=== PATIENT | female | born 1985 | race Caucasian/White ===

== ENCOUNTER 2018-11-14 05:14 | Inpatient (IN) | payer BC ==
[2018-11-14] MEDS ORDERED: Sodium Chloride 0.9% 10 ML Syringe FLUSH PRN (05:19)
[2018-11-14] MEDS ORDERED: Sodium Chloride 0.9% 10 ML SDV IV PRN (05:19)
[2018-11-14] MEDS ORDERED: Citric Acid/Sodium Citrate Solution 30 ML Cup PO ONE (05:19)
[2018-11-14] MEDS ORDERED: Sodium Chloride 0.9% 2.5 ML Syringe FLUSH PRN (05:19)
[2018-11-14] MEDS ORDERED: Oxytocin/0.9 % Sodium Chloride 30 UNIT/500 ML BAG IV SCH (05:30)
[2018-11-14] MEDS: Lactated Ringers 1,000 ML IV SCH ×3 (05:46→07:20)
--- NOTE | 2018-11-14 06:51 | PCM.PREANE ---
Preanesthetic Assessment - Anesthesia/Transfusion/Family Hx Anesthesia History: Prior Anesthesia Without Reaction Family History of Anesthesia Reaction: No Transfusion History: No Prior Transfusion(s) Intubation History: Unknown - Review of Systems General: No Symptoms Pulmonary: No Symptoms Cardiovascular: No Symptoms Gastrointestinal: No Symptoms Neurological: No Symptoms Other: Reports: None - Physical Assessment Height: 5 ft 9 in Weight: 115.212 kg ASA Class: 2 Mental Status: Alert & Oriented x3 Airway Class: Mallampati = 2 Dentition: Reports: Normal Dentition Thyro-Mental Finger Breadths: 3 Mouth Opening Finger Breadths: 3 ROM/Head Extension: Full Lungs: Clear to Auscultation, Normal Respiratory Effort Cardiovascular: Regular Rate, Regular Rhythm - Lab Values: Laboratory Last Values WBC 8.27 K/uL (4.0-11.0) 11/13/18 15:47 RBC 3.47 M/uL (4.30-5.90) L 11/13/18 15:47 Hgb 10.7 g/dL (12.0-16.0) L 11/13/18 15:47 Hct 32.1 % (36.0-46.0) L 11/13/18 15:47 MCV 92.5 fL (80.0-98.0) 11/13/18 15:47 MCH 30.8 pg (27.0-32.0) 11/13/18 15:47 MCHC 33.3 g/dL (31.0-37.0) 11/13/18 15:47 RDW Std Deviation 44.8 fl (28.0-62.0) 11/13/18 15:47 RDW Coeff of Ta 13 % (11.0-15.0) 11/13/18 15:47 Plt Count 308 K/uL (150-400) 11/13/18 15:47 MPV 10.30 fL (7.40-12.00) 11/13/18 15:47 Nucleated RBC % 0.0 /100WBC 11/13/18 15:47 Nucleated RBCs # 0 K/uL 11/13/18 15:47 Blood Type O NEGATIVE 11/13/18 15:47 Antibody Screen NEGATIVE 11/13/18 15:47 - Allergies Allergies/Adverse Reactions: Allergies Allergy/AdvReac Type Severity Reaction Status Date / Time No Known Allergies Allergy Verified 11/09/18 14:07 - Blood Blood Available: No - Anesthesia Plan Pre-Op Medication Ordered: None - Acknowledgements Anesthesia Type Planned: Spinal (GETA back up plan) Pt an Appropriate Candidate for the Planned Anesthesia: Yes Alternatives and Risks of Anesthesia Discussed w Pt/Guardian: Yes Pt/Guardian Understands and Agrees with Anesthesia Plan: Yes PreAnesthesia Questionnaire HEENT History: Reports: Impaired Vision, Other (See Below) Other HEENT History: glasses only when driving Cardiovascular History: Reports: None Respiratory History: Reports: None Gastrointestinal History: Reports: Other (See Below) Other Gastrointestinal History: heartburn during Genitourinary History: Reports: None 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 Cardiovascular Surgical History: Reports: None Respiratory Surgical History: Reports: None GI Surgical History: Reports: None Female Surgical History: Reports: Section (x2) Endocrine Surgical History: Reports: None Neurological Surgical History: Reports: None Musculoskeletal Surgical History: Reports: Other (See Below) Other Musculoskeletal Surgeries/Procedures:: Bilateral knee surgery in [facility]. Oncologic Surgical History: Reports: None Dermatological Surgical History: Reports: None - SUBSTANCE USE Smoking Status *Q: Former Smoker Tobacco Use Within Last Twelve Months: Cigarettes Recreational Drug Use History: No - HOME MEDS Home Medications: Home Meds Acetaminophen [Tylenol] 2 tab PO ASDIRECTED PRN 11/09/18 [History] Calcium Carbonate [Tums] 500 mg CHEW ASDIRECTED PRN 11/09/18 [History] Ferrous Sulfate 325 mg PO BID 11/09/18 [History] Magnesium Acetate 200 mg PO DAILY 11/09/18 [History] PNV95/Ferrous Fumarate/FA [ Vitamin Tablet] 1 tab PO DAILY 11/09/18 [ History] - CURRENT (IN HOUSE) MEDS Current Meds: Current Medications Cefazolin Sodium/Dextrose 2 gm (/ Premix) 50 mls @ 100 mls/hr IV ONETIME ONE Stop: 11/14/18 07:29 Lactated Ringer's (Ringers, Lactated) 1,000 mls @ 500 mls/hr IV BOLUS CECIL Last Admin: 11/14/18 06:18 Dose: 500 mls/hr Oxytocin/Sodium Chloride (Oxytocin 30 Unit/500 Ml-Ns) 30 unit in 500 mls @ 250 mls/hr IV TITRATE CECIL Sodium Chloride (Saline Flush) 10 ml FLUSH ASDIRECTED PRN PRN Reason: Keep Vein Open Sodium Chloride (Saline Flush) 2.5 ml FLUSH ASDIRECTED PRN PRN Reason: Keep Vein Open Sodium Chloride (Normal Saline) 10 ml IV ASDIRECTED PRN PRN Reason: IV Use Discontinued Medications Citric Acid/Sodium Citrate (Bicitra Solution) 30 ml PO ONETIME ONE Stop: 11/14/18 05:20
[2018-11-14] MEDS ORDERED: ceFAZolin 2 GM in Premix Bag 1 BAG IV ONE (07:00)
[2018-11-14] MEDS ORDERED: Octyl 2-Cyanoacrylate 1 Tube ONE (07:36)
--- NOTE | 2018-11-14 09:23 | PCM.OPNOTE ---
- General Post-Op/Procedure Note Date of Surgery/Procedure: 11/14/18 Operative Procedure(s): repeat low transverse Findings: liveborn female 99 normal pelvis Pre Op Diagnosis: 39 weeks previous Post-Op Diagnosis: Same Anesthesia Technique: Spinal Primary Surgeon: Denia Whitaker Secondary Surgeon: Candie Drew Anesthesia Provider: Gloria Taylor Radic Pathology: none Fluid Replacement, Intraop: 2,500 Output, Urine Amount: 100 EBL in mLs: 500 Complications: None Known. Condition: Good
[2018-11-14] MEDS ORDERED: Bisacodyl 10 MG Supp RECTAL PRN (09:24)
[2018-11-14] MEDS ORDERED: diphenhydrAMINE 50 MG/ML SDV IVPUSH PRN ×2 (09:24→11:45)
[2018-11-14] MEDS ORDERED: Ondansetron 4 MG/2 ML SDV IVPUSH PRN ×2 (09:24→11:45)
[2018-11-14] MEDS ORDERED: Lanolin 100% Cream 7 GM Tube TOP PRN (09:24)
[2018-11-14] MEDS ORDERED: Acetaminophen/oxyCODONE 325-5 MG Tab PO PRN ×4 (09:24→14:09)
[2018-11-14] MEDS ORDERED: Lactated Ringers 1,000 ML IV SCH (09:30)
[2018-11-14] MEDS ORDERED: Nalbuphine 10 MG/1 ML Vial ONE (10:05)
--- NOTE | 2018-11-14 11:25 | PCM.POSTAN ---
POST ANESTHESIA ASSESSMENT - MENTAL STATUS Mental Status: Alert, Oriented - RESPIRATORY Respiratory Status: Respiratory Rate WNL, Airway Patent, O2 Saturation Stable - CARDIOVASCULAR CV Status: Pulse Rate WNL, Blood Pressure Stable - GASTROINTESTINAL GI Status: No Symptoms - POST OP HYDRATION Hydration Status: Adequate & Stable - OBSERVATIONS Free Text/Narrative:: no anesthesia problems
[2018-11-14] MEDS ORDERED: Nalbuphine 10 MG/1 ML Vial IVPUSH PRN (11:45)
[2018-11-14] MEDS ORDERED: fentaNYL 100 MCG/2 ML SDV IVPUSH PRN (11:45)
[2018-11-14] MEDS ORDERED: Naloxone 0.4 MG/ML Syringe IVPUSH PRN (11:45)
[2018-11-14] MEDS ORDERED: Morphine 2 MG/ML Syringe IVPUSH PRN (13:32)
[2018-11-14] MEDS: Acetaminophen 500 MG Tab PO PRN ×2 (15:03→23:12)
--- NOTE | 2018-11-14 16:10 | OR ---
SURGEON: Denia Whitaker M.D. DATE OF PROCEDURE: 11/14/2018 PREOPERATIVE DIAGNOSES: A 39-week intrauterine , prior delivery, desires repeat C- section. POSTOPERATIVE DIAGNOSES: A 39-week intrauterine , prior delivery, desires repeat C- section. PROCEDURE: Repeat low-transverse section. PRIMARY SURGEON: Denia Whitaker MD. FLORICULTURIST: Cira Drew, baking assistant student. ANESTHESIA: Spinal. ESTIMATED BLOOD LOSS: 500 mL. FLUIDS: 2500 mL of crystalloid. URINE OUTPUT: 100 mL. FINDINGS: Liveborn female, score 9 and 9, weighing 3090 g. Normal-appearing uterus, tubes, and ovaries. COMPLICATIONS: None known. DISPOSITION: Stable to recovery. BRIEF HISTORY: This is a 33-year-old female, G3, P2, who presents at 39 weeks' gestation with prior deliveries, desires repeat with risks discussed including bleeding; infection; injury to bowel, bladder, blood vessels, or other organs; risk of thromboembolic event; risk of anesthesia. Understanding all these risks, she does desire to proceed. DESCRIPTION OF PROCEDURE: With the patient in left tilt position, under adequate spinal analgesia, the abdomen was prepped with chlorhexidine and draped in the usual fashion for abdominal surgery. SCDs were in place. Bains catheter had been placed, and she received 2 g of Ancef IV. After an appropriate time-out was held, documentation of adequate analgesia was performed, the prior cicatrix was excised with a scalpel and removed. The incision was carried through the subcutaneous tissue transversely until the fascia was identified. The fascia was then scored transversely in the midline using a scalpel and then the incision was extended using curved Drew scissors. The fascia was elevated from the underlying rectus muscle and using sharp and blunt dissection was . A finger was placed into the peritoneal cavity. The Neo O retractor was placed. The visceroperitoneum over the lower uterine segment was incised. Note was made of an extremely thin lower uterine segment, which was incised after bladder flap had been developed and a finger was used to enter the amniotic cavity. Clear fluid was noted. The head was delivered via the uterine incision with fundal pressure with subsequent delivery of the infant's shoulders and body without any difficulty. The was bulb suctioned by nose and mouth and the cord was clamped x2 and cut. The was handed to the nurse in attendance at delivery. The infant is a liveborn female, scores 9 and 9, weighing 3090 g. Cord blood was collected for cord ABGs as well as routine cord blood sampling. With fundal pressure, the placenta was delivered. The uterus was cleaned with a dry laparotomy tape. The cervix was opened with ring forceps. Pitocin was given after delivery of the and the uterus contracted nicely. The uterine incision was closed with a running lock suture of 0 Polysorb followed by an imbricating layer of 0 Polysorb. Initially, there was excellent hemostasis. However, the spots on the incision where the sutures had come through began to bleed and multiple [id number] sutures were then placed for hemostasis. At this point, I did instruct the anesthesiologist to withhold ketorolac and also provide methotrexate. Once I confirmed complete hemostasis, the Neo retractor was removed. The area was carefully inspected again. With some time delay to ensure complete hemostasis, and this being documented, the rectus muscle and peritoneum were loosely approximated in the midline using a running mattress suture of 0 Polysorb. The posterior aspect of the fascia was inspected, any areas of bleeding that were noted were cauterized. The fascial incision was closed with a running suture of 0 Polysorb. The subcutaneous tissue was carefully irrigated, any areas of bleeding that were noted were cauterized. The skin was closed with a running subcuticular suture of 3-0 Monocryl followed by Dermabond. Final sponge, needle, and instrument counts were reported as correct. There were no known complications. The patient was transferred to recovery in good condition. ELI RICHARDSON /[id number]
[2018-11-14] MEDS: Docusate Sodium 100 MG Cap PO SCH (21:17)
[2018-11-15] MEDS: Acetaminophen 500 MG Tab PO PRN ×2 (07:01→19:39)
--- NOTE | 2018-11-15 07:44 | PCM48HPAN ---
Post Anesthesia Note - EVALUATION WITHIN 48HRS OF ANESTHETIC Vital Signs in Normal Range: Yes Patient Participated in Evaluation: Yes Respiratory Function Stable: Yes Airway Patent: Yes Cardiovascular Function Stable: Yes Hydration Status Stable: Yes Pain Control Satisfactory: Yes Nausea and Vomiting Control Satisfactory: Yes Mental Status Recovered: Yes Resp Rate: 15 - COMMENTS/OBSERVATIONS Free Text/Narrative:: no anesthesia problems
[2018-11-15] MEDS ORDERED: Acetaminophen 500 MG Tab PO PRN (08:47)
--- NOTE | 2018-11-15 08:50 | PCM.PNPP ---
- General Info Date of Service: 11/15/18 Subjective Update: struggling with latching on with . Pain well controlled tolerating diet, has been ambulating, catheter out and urinating well. Functional Status: Reports: Pain Controlled, Tolerating Diet, Ambulating, Urinating - Review of Systems General: Reports: No Symptoms HEENT: Reports: No Symptoms Pulmonary: Reports: No Symptoms Cardiovascular: Reports: No Symptoms Gastrointestinal: Reports: No Symptoms Genitourinary: Reports: No Symptoms Musculoskeletal: Reports: No Symptoms Skin: Reports: No Symptoms Neurological: Reports: No Symptoms Psychiatric: Reports: No Symptoms - General Info Date of Service: 11/15/18 - Patient Data Vital Signs - Most Recent: Last Vital Signs Temp 36.1 C 11/15/18 07:22 Pulse 82 11/15/18 08:00 Resp 16 11/15/18 08:00 BP 116/64 11/15/18 07:22 Pulse Ox 99 11/15/18 08:00 Weight - Most Recent: 115.212 kg I&O - Last 24 Hours: Intake & Output 11/14/18 11/15/18 11/15/18 22:59 06:59 14:59 Intake Total 2 Output Total 725 Balance -723 Lab Results - Last 24 Hours: Laboratory Results - last 24 hr 11/14/18 11/14/18 11/15/18 Range/Units 08:30 11:15 05:02 Hgb 9.3 L (12.0-16.0) g/dL Hct 28.1 L (36.0-46.0) % Cord ABG pH 7.312 (7.18-7.38) Cord ABG Base Excess -3 (-10--2) Cord VBG pH 7.339 (7.25-7.45) Cord VBG Base Excess -4 (-10--2) Screen NEGATIVE (NEGATIVE) RhIG Candidate? YES Rhogam Indicated YES, BABY RH POS H Med Orders - Current: Current Medications Acetaminophen (Tylenol Extra Strength) 1,000 mg PO Q8H PRN PRN Reason: Pain Last Admin: 11/15/18 07:01 Dose: 1,000 mg Bisacodyl (Dulcolax) 10 mg RECTAL ONETIME PRN PRN Reason: Constipation Diphenhydramine HCl (Benadryl) 25 mg IVPUSH Q6H PRN PRN Reason: Itching or Nausea Diphenhydramine HCl (Benadryl) 25 mg IVPUSH Q4H PRN PRN Reason: Itching Stop: 11/15/18 11:45 Docusate Sodium (Colace) 100 mg PO BID [facility] Last Admin: 11/14/18 21:17 Dose: 100 mg Emollient Ointment (Lansinoh Hpa) 0 gm TOP ASDIRECTED PRN PRN Reason: Sore Nipples Fentanyl (Sublimaze) 50 mcg IVPUSH Q1H PRN PRN Reason: Pain (severe 7-10) Lactated Ringer's (Ringers, Lactated) 1,000 mls @ 125 mls/hr IV ASDIRECTED CECIL Ibuprofen (Motrin) 800 mg PO Q8H PRN PRN Reason: mild pain or fever Morphine Sulfate (Morphine) 2 mg IVPUSH .Q5MIN PRN PRN Reason: Pain Nalbuphine HCl (Nubain) 5 mg IVPUSH ASDIRECTED PRN PRN Reason: Itching Naloxone HCl (Narcan) 0.1 mg IVPUSH ONETIME PRN PRN Reason: Respiratory Depression Stop: 11/15/18 11:45 Ondansetron HCl (Zofran) 4 mg IVPUSH Q4H PRN PRN Reason: Nausea/Vomiting Ondansetron HCl (Zofran) 4 mg IVPUSH Q6H PRN PRN Reason: Nausea Oxycodone/Acetaminophen (Percocet 325-5 Mg) 2 tab PO Q6H PRN PRN Reason: Pain (moderate 4-6) Oxycodone/Acetaminophen (Percocet 325-5 Mg) 1 tab PO Q4H PRN PRN Reason: Breakthrough Pain Discontinued Medications Citric Acid/Sodium Citrate (Bicitra Solution) 30 ml PO ONETIME ONE Stop: 11/14/18 05:20 Last Admin: 11/14/18 13:09 Dose: Not Given Cefazolin Sodium/Dextrose 2 gm (/ Premix) 50 mls @ 100 mls/hr IV ONETIME ONE Stop: 11/14/18 07:29 Last Admin: 11/14/18 13:09 Dose: Not Given Lactated Ringer's (Ringers, Lactated) 1,000 mls @ 500 mls/hr IV BOLUS [facility] Last Admin: 11/14/18 07:20 Dose: 500 mls/hr Oxytocin/Sodium Chloride (Oxytocin 30 Unit/500 Ml-Ns) 30 unit in 500 mls @ 250 mls/hr IV TITRATE CECIL Nalbuphine HCl (Nubain) Confirm Administered Dose 10 mg .ROUTE .STK-MED ONE Stop: 11/14/18 10:06 Last Admin: 11/14/18 10:05 Dose: 10 mg Octyl Cyanoacrylate (Dermabond Advance) Confirm Administered Dose 1 applic .ROUTE .STK-MED ONE Stop: 11/14/18 07:37 Last Admin: 11/14/18 12:50 Dose: Not Given Oxycodone/Acetaminophen (Percocet 325-5 Mg) 1 tab PO Q4H PRN PRN Reason: Pain (moderate 4-6) Oxycodone/Acetaminophen (Percocet 325-5 Mg) 2 tab PO Q4H PRN PRN Reason: Pain (moderate 4-6) Sodium Chloride (Saline Flush) 10 ml FLUSH ASDIRECTED PRN PRN Reason: Keep Vein Open Sodium Chloride (Saline Flush) 2.5 ml FLUSH ASDIRECTED PRN PRN Reason: Keep Vein Open Sodium Chloride (Normal Saline) 10 ml IV ASDIRECTED PRN PRN Reason: IV Use - Interaction Disposition, : [place] in Room with Family Feeding: Attempted ; Nursed Fair/Poor Support Person: - Recovery Exam Fundal Tone: Firm Fundal Level: At Umbilicus Fundal Placement: Right Lochia Amount: None Lochia Color: Rubra/Red Perineum Description: Intact, Minimal Bruising/Swelling Episiotomy/Laceration: None Bladder Status: Voiding Urinary Elimination: Voided - Exam General: Alert, Oriented HEENT: Pupils Equal Lungs: Normal Respiratory Effort Extremities: Normal Inspection, No Pedal Edema Skin: Warm, Dry, Intact Wound/Incisions: Dressing Dry and Intact Neurological: No New Focal Deficit Psy/Mental Status: Alert, Normal Affect, Normal Mood - Problem List & Annotations (1) Previous delivery affecting , delivered SNOMED Code(s): 628896974, 546584583 Code(s): O34.219 - MATERNAL CARE FOR UNSP TYPE SCAR FROM PREVIOUS DEL Status: Acute Current Visit: Yes (2) delivery delivered SNOMED Code(s): 519405831 Code(s): O82 - ENCOUNTER FOR DELIVERY WITHOUT INDICATION Status: Acute Current Visit: Yes - Problem List Review Problem List Initiated/Reviewed/Updated: Yes - My Orders Last 24 Hours: My Active Orders 11/14/18 09:24 Patient Status [ADT] Routine Ambulate [RC] PER UNIT ROUTINE Communication Order [RC] PER UNIT ROUTINE Communication Order [RC] PER UNIT ROUTINE Communication Order [RC] Per Unit Routine May Shower [RC] ASDIRECTED RT Incentive Spirometry [RC] Q2HWA Vital Signs [RC] PER UNIT ROUTINE Bisacodyl [Dulcolax] 10 mg RECTAL ONETIME PRN Ibuprofen [Motrin] 800 mg PO Q8H PRN Lanolin [Lansinoh HPA] See Dose Instructions TOP ASDIRECTED PRN Ondansetron [Zofran] 4 mg IVPUSH Q4H PRN diphenhydrAMINE [Benadryl] 25 mg IVPUSH Q6H PRN Abdominal Binder [OM.PC] Urgent Assess Lochia [WOMSER] Per Unit Routine Assess Uterine Involution [WOMSER] Per Unit Routine Breast Pump [WOMSER] Per Unit Routine Peripheral IV Discontinue [OM.PC] Routine Sequential Compression Device [OM.PC] Per Unit Routine Resuscitation Status Routine 11/14/18 09:25 Antiembolic Devices [RC] PER UNIT ROUTINE Notify Provider Intake and Out [RC] ASDIRECTED Notify Provider Vital Signs [RC] ASDIRECTED 11/14/18 09:30 Lactated Ringers [Ringers, Lactated] 1,000 ml IV ASDIRECTED 11/14/18 21:00 Docusate Sodium [Colace] 100 mg PO BID 11/14/18 Lunch Regular Diet [DIET] 11/15/18 08:47 Acetaminophen [Tylenol Extra Strength] 1,000 mg PO Q6H PRN oxyCODONE 5 mg PO Q2H PRN - Assessment Assessment:: POD#1 after repeat , stable, minimal lochia, pain well controlled. Vital stable. - Plan Plan:: Continue care, support and education. Would like to have Tylenol and Ibuprofen as primary pain medications as narcotics make her nauseated. Anticipate home tomorrow.
[2018-11-15] MEDS: Docusate Sodium 100 MG Cap PO SCH ×2 (09:49→20:53)
[2018-11-15] MEDS: Ibuprofen 800 MG Tab PO PRN (13:03)
[2018-11-16] MEDS: oxyCODONE 5 MG Tab PO PRN ×2 (03:06→10:37)
[2018-11-16] MEDS: Acetaminophen 500 MG Tab PO PRN (06:24)
--- NOTE | 2018-11-16 09:22 | PCM.PNPP ---
- General Info Date of Service: 11/16/18 Functional Status: Reports: Pain Controlled, Tolerating Diet, Ambulating, Urinating - Review of Systems General: Reports: No Symptoms HEENT: Reports: No Symptoms Pulmonary: Reports: No Symptoms Cardiovascular: Reports: No Symptoms Gastrointestinal: Reports: No Symptoms Genitourinary: Reports: No Symptoms Musculoskeletal: Reports: No Symptoms Skin: Reports: No Symptoms Neurological: Reports: No Symptoms Psychiatric: Reports: No Symptoms - Patient Data Vital Signs - Most Recent: Last Vital Signs Temp 36.6 C 11/16/18 03:45 Pulse 83 11/16/18 03:45 Resp 15 11/16/18 03:45 BP 138/85 11/16/18 03:45 Pulse Ox 98 11/16/18 03:45 Weight - Most Recent: 115.212 kg Med Orders - Current: Current Medications Acetaminophen (Tylenol Extra Strength) 1,000 mg PO Q8H PRN PRN Reason: Pain Last Admin: 11/16/18 06:24 Dose: 1,000 mg Acetaminophen (Tylenol Extra Strength) 1,000 mg PO Q6H PRN PRN Reason: Pain Bisacodyl (Dulcolax) 10 mg RECTAL ONETIME PRN PRN Reason: Constipation Diphenhydramine HCl (Benadryl) 25 mg IVPUSH Q6H PRN PRN Reason: Itching or Nausea Docusate Sodium (Colace) 100 mg PO BID [facility] Last Admin: 11/15/18 20:53 Dose: 100 mg Emollient Ointment (Lansinoh Hpa) 0 gm TOP ASDIRECTED PRN PRN Reason: Sore Nipples Last Admin: 11/15/18 19:37 Dose: 1 tube Fentanyl (Sublimaze) 50 mcg IVPUSH Q1H PRN PRN Reason: Pain (severe 7-10) Lactated Ringer's (Ringers, Lactated) 1,000 mls @ 125 mls/hr IV ASDIRECTED CECIL Ibuprofen (Motrin) 800 mg PO Q8H PRN PRN Reason: mild pain or fever Last Admin: 11/15/18 13:03 Dose: 800 mg Morphine Sulfate (Morphine) 2 mg IVPUSH .Q5MIN PRN PRN Reason: Pain Nalbuphine HCl (Nubain) 5 mg IVPUSH ASDIRECTED PRN PRN Reason: Itching Ondansetron HCl (Zofran) 4 mg IVPUSH Q4H PRN PRN Reason: Nausea/Vomiting Ondansetron HCl (Zofran) 4 mg IVPUSH Q6H PRN PRN Reason: Nausea Oxycodone HCl (Oxycodone) 5 mg PO Q2H PRN PRN Reason: Pain Last Admin: 11/16/18 03:06 Dose: 5 mg Oxycodone/Acetaminophen (Percocet 325-5 Mg) 2 tab PO Q6H PRN PRN Reason: Pain (moderate 4-6) Oxycodone/Acetaminophen (Percocet 325-5 Mg) 1 tab PO Q4H PRN PRN Reason: Breakthrough Pain Discontinued Medications Citric Acid/Sodium Citrate (Bicitra Solution) 30 ml PO ONETIME ONE Stop: 11/14/18 05:20 Last Admin: 11/14/18 13:09 Dose: Not Given Diphenhydramine HCl (Benadryl) 25 mg IVPUSH Q4H PRN PRN Reason: Itching Stop: 11/15/18 11:45 Cefazolin Sodium/Dextrose 2 gm (/ Premix) 50 mls @ 100 mls/hr IV ONETIME ONE Stop: 11/14/18 07:29 Last Admin: 11/14/18 13:09 Dose: Not Given Lactated Ringer's (Ringers, Lactated) 1,000 mls @ 500 mls/hr IV BOLUS CECIL Last Admin: 11/14/18 07:20 Dose: 500 mls/hr Oxytocin/Sodium Chloride (Oxytocin 30 Unit/500 Ml-Ns) 30 unit in 500 mls @ 250 mls/hr IV TITRATE CECIL Nalbuphine HCl (Nubain) Confirm Administered Dose 10 mg .ROUTE .STK-MED ONE Stop: 11/14/18 10:06 Last Admin: 11/14/18 10:05 Dose: 10 mg Naloxone HCl (Narcan) 0.1 mg IVPUSH ONETIME PRN PRN Reason: Respiratory Depression Stop: 11/15/18 11:45 Octyl Cyanoacrylate (Dermabond Advance) Confirm Administered Dose 1 applic .ROUTE .STK-MED ONE Stop: 11/14/18 07:37 Last Admin: 11/14/18 12:50 Dose: Not Given Oxycodone/Acetaminophen (Percocet 325-5 Mg) 1 tab PO Q4H PRN PRN Reason: Pain (moderate 4-6) Oxycodone/Acetaminophen (Percocet 325-5 Mg) 2 tab PO Q4H PRN PRN Reason: Pain (moderate 4-6) Sodium Chloride (Saline Flush) 10 ml FLUSH ASDIRECTED PRN PRN Reason: Keep Vein Open Sodium Chloride (Saline Flush) 2.5 ml FLUSH ASDIRECTED PRN PRN Reason: Keep Vein Open Sodium Chloride (Normal Saline) 10 ml IV ASDIRECTED PRN PRN Reason: IV Use - Infant Interaction Disposition, : [place] in Room with Family Infant Feeding: Breastfed Infant; Nursed Well (baby latching pbetter.) Support Person: - Recovery Exam Fundal Tone: Firm Fundal Level: 2 Fingerbreadths Below Umbilicus Fundal Placement: Midline Lochia Amount: Scant Lochia Color: Rubra/Red Perineum Description: Intact, Minimal Bruising/Swelling Episiotomy/Laceration: None Bladder Status: Voiding Urinary Elimination: Voided - Exam General: Alert, Oriented HEENT: Pupils Equal Lungs: Normal Respiratory Effort GI/Abdominal Exam: Normal Bowel Sounds, Soft, Non-Tender, No Organomegaly, No Distention, No Abnormal Bruit, No Mass, Pelvis Stable Extremities: Normal Inspection, Non-Tender. No: No Pedal Edema (trace) Skin: Warm, Dry, Intact Wound/Incisions: Healing Well Neurological: No New Focal Deficit Psy/Mental Status: Alert, Normal Affect, Normal Mood - Problem List & Annotations (1) Previous delivery affecting , delivered SNOMED Code(s): 133993898, 055837263 Code(s): O34.219 - MATERNAL CARE FOR UNSP TYPE SCAR FROM PREVIOUS DEL Status: Acute Current Visit: Yes (2) delivery delivered SNOMED Code(s): 262938386 Code(s): O82 - ENCOUNTER FOR DELIVERY WITHOUT INDICATION Status: Acute Current Visit: Yes - Problem List Review Problem List Initiated/Reviewed/Updated: Yes - My Orders Last 24 Hours: My Active Orders 11/15/18 08:47 Acetaminophen [Tylenol Extra Strength] 1,000 mg PO Q6H PRN oxyCODONE 5 mg PO Q2H PRN - Assessment Assessment:: POD#2 after repeat , stable, minimal lochia, pain well controlled. She would like to be discharged today. Milk is in and baby is latching and feeding much better. - Plan Plan:: Dismiss to home. discharge instructions reviewed.
[2018-11-16] MEDS: Docusate Sodium 100 MG Cap PO SCH (09:35)
[2018-11-16] MEDS: Ibuprofen 800 MG Tab PO PRN (09:35)
== END 2018-11-16 11:00 | disposition home or self-care (01) | DRG 540 ==
LOC: MW.OB 05:14
PROVIDERS: ADMIT Obstetrics & Gynecology; ATTEND Obstetrics & Gynecology
PROC: 10D00Z1 Extraction of Products of Conception, Low, Open Approach (ICD-10-PCS; principal; 2018-11-14)
DX: O34.211 Maternal care for low transverse scar from previous cesarean delivery (principal); O99.214 Obesity complicating childbirth; E66.9 Obesity, unspecified; Z37.0 Single live birth; Z87.891 Personal history of nicotine dependence; Z3A.39 39 weeks gestation of pregnancy
CPT/HCPCS: 01961; 36415; 59025; 82803; 85014; 85018; 85027; 85460; 86850; 86900; 86901; A9270-GY; J2300; J2792; J7120

== ENCOUNTER 2022-08-16 19:08 | Emergency (ER) | payer SELFPAY ==
[2022-08-16] MEDS ORDERED: Sodium Chloride 0.9% 1,000 ML IV STA (20:15)
[2022-08-16 20:32] LABS: CARBON DIOXIDE,CO2 24.4 mmol/L (21.0-32.0); POTASSIUM,K 3.5 mmol/L (3.5-5.1)
[2022-08-16 20:43] LABS: CORONAVIRUS COVID-19 NAA NEGATIVE (NEGATIVE); INFLUENZA A NAA NEGATIVE (NEGATIVE); INFLUENZA B NAA NEGATIVE (NEGATIVE)
[2022-08-16] MEDS ORDERED: Iopamidol 755 MG/ML 500 ML Multipack Bottle IVPUSH ONE (20:45)
[2022-08-16] MEDS ORDERED: Morphine 4 MG/ML Syringe IVPUSH STA (21:44)
== END 2022-08-16 23:12 | disposition home or self-care (01) ==
LOC: MW.ED 19:08
DX: N13.2 Hydronephrosis with renal and ureteral calculous obstruction (principal); E66.9 Obesity, unspecified; Z20.822 Contact with and (suspected) exposure to COVID-19; Z68.35 Body mass index [BMI] 35.0-35.9, adult
CPT/HCPCS: 0240U; 36415; 74177; 80053; 81001; 85025; 96361; 96374; 99284; J2270; J7030; Q9967

== ENCOUNTER 2024-05-25 09:50 | Emergency (ER) | payer BC ==
[2024-05-25 10:18] LABS: BASOPHILS ABSOLUTE AUTO 0.04 K/uL (0.00-0.20); BASOPHILS PERCENT AUTO 0.5 % (0.0-1.0); EOSINOPHILS PERCENT AUTO 1.3 % (0.0-6.0); HEMATOCRIT 35.3 % (37.0-47.0); HEMOGLOBIN 11.8 g/dL (12.0-16.0); IMMATURE GRAN ABSOLUTE AUTO 0.02 K/uL (0.00-0.05); IMMATURE GRAN PERCENT AUTO 0.3 % (0.0-0.4); LYMPHOCYTES ABSOLUTE AUTO 2.17 K/uL (1.00-4.80); MEAN CORPUSCULAR HEMOGLOBIN 28.7 pg (28.0-32.0); MEAN CORPUSCULAR HGB CONC 33.4 g/dL (32.0-36.0); MEAN CORPUSCULAR VOLUME 85.9 fL (83.0-99.0); MEAN PLATELET VOLUME 9.6 fL (9.4-12.3); MONOCYTES ABSOLUTE AUTO 0.36 K/uL (0.00-0.80); MONOCYTES PERCENT AUTO 4.8 % (0.0-8.0); NEUTROPHILS ABSOLUTE AUTO 4.79 K/uL (1.80-7.70); NEUTROPHILS PERCENT AUTO 64.1 % (41.0-71.0); PLATELET COUNT,PLT 413 K/uL (150-400); RED BLOOD CELL COUNT 4.11 M/uL (4.10-5.30); WHITE BLOOD CELL COUNT,WBC 7.48 K/uL (3.9-11.3)
[2024-05-25 10:45] LABS: A/G RATIO 0.9 (0.9-1.6); ALBUMIN 3.6 g/dL (3.4-5.0); BILIRUBIN TOTAL 0.6 mg/dL (0.2-1.0); CALCIUM 8.8 mg/dL (8.5-10.1); CARBON DIOXIDE,CO2 24.8 mmol/L (21.0-32.0); CREATININE 0.8 mg/dL (0.6-1.0); EST CRCL DRUG DOSING (CG) 100.07 mL/min; MAGNESIUM 1.8 mg/dL (1.8-2.4); POTASSIUM,K 3.8 mmol/L (3.5-5.1); PROTEIN TOTAL,TP 7.4 g/dL (6.4-8.2)
[2024-05-25] MEDS: Iopamidol 755 Mg/ML 100 ML Bottle IVPUSH ONE (10:59)
[2024-05-25] MEDS: Sodium Chloride 0.9% 1,000 ML IV STA (11:29)
== END 2024-05-25 12:23 | disposition home or self-care (01) ==
LOC: MW.ED 09:50
DX: K57.32 Diverticulitis of large intestine without perforation or abscess without bleeding (principal); R93.89 Abnormal findings on diagnostic imaging of other specified body structures; Z97.5 Presence of (intrauterine) contraceptive device; E66.9 Obesity, unspecified; Z68.36 Body mass index [BMI] 36.0-36.9, adult; Z88.8 Allergy status to other drugs, medicaments and biological substances; Z75.8 Other problems related to medical facilities and other health care
CPT/HCPCS: 36415; 74177; 76830; 80053; 83690; 83735; 84703; 85025; 96360; 99284; J7030; Q9967; 99283